=== PATIENT | female | born 1970 | race Caucasian/White ===

== ENCOUNTER → 2016-06-10 | Outpatient (CLI) | payer MEDICAID ==
[2016-06-10 12:57] LABS: Basophils % (A) 1 %; CH 32.1; CHCM 34.3; Eosinophils # (A) 0.1 k/uL (0-0.7); Eosinophils % (A) 2 %; HGB 13.6 gm/dL (11.4-16.0); Luc # (Auto) 0.11; Luc % (Auto) 3; Lymphocytes # (A) 1.5 k/uL (1.0-4.8); Lymphocytes % (A) 39 %; MCH 31.9 pg (25.0-35.0); Monocytes # (A) 0.2 k/uL (0-1.0); Monocytes % (A) 6 %; Neutrophils # (A) 1.8 k/uL (1.3-7.7); Neutrophils % (A) 49 %; RBC 4.26 m/uL (3.80-5.40); RDW 12.5 % (11.5-15.5); WBC 3.8 k/uL (3.8-10.6); WBC (Perox) 3.92
[2016-06-10 12:59] LABS: ALT 28 U/L (9-52); AST 19 U/L (14-36); Alkaline Phosphatase 38 U/L (38-126); Anion Gap 10 mmol/L; Blood Urea Nitrogen 12 mg/dL (7-17); Calcium 9.4 mg/dL (8.4-10.2); Carbon Dioxide 26 mmol/L (22-30); Chloride 105 mmol/L (98-107); Cholesterol 162 mg/dL (<200); Glucose 91 mg/dL (74-99); LDH 280 U/L (313-618); Non-African American GFR(MDRD) >60 (>60 ml/min/1.73 sqM); Phosphorous 3.6 mg/dL (2.5-4.5); Sodium 141 mmol/L (137-145); Total Bilirubin 0.6 mg/dL (0.2-1.3); Total Protein 6.8 g/dL (6.3-8.2); Uric Acid 2.7 mg/dL (3.7-7.4)
[2016-06-10 19:39] LABS: DHEA Sulfate 68.8 ug/dL (26.0-430.0)
== END | disposition home or self-care (01) ==
LOC: LABWHC1 11:59
PROVIDERS: ATTEND Family Medicine
DX: R53.83 Other fatigue (principal); E06.3 Autoimmune thyroiditis; E34.9 Endocrine disorder, unspecified; E03.9 Hypothyroidism, unspecified; E83.10 Disorder of iron metabolism, unspecified; R73.09 Other abnormal glucose; E88.9 Metabolic disorder, unspecified; E83.9 Disorder of mineral metabolism, unspecified; E61.9 Deficiency of nutrient element, unspecified; E55.9 Vitamin D deficiency, unspecified; E56.9 Vitamin deficiency, unspecified
CPT/HCPCS: 36415; 80053; 82306; 82465; 82627; 83615; 83735; 84100; 84436; 84443; 84480; 84482; 84550; 85025; 86141; 86376; 86800

== ENCOUNTER → 2016-07-02 | Outpatient (CLI) | payer MEDICAID | END | disposition home or self-care (01) | LOC: LABWHC1 16:06 | PROVIDERS: ATTEND Family Medicine | DX: E88.9 Metabolic disorder, unspecified (principal); E58 Dietary calcium deficiency; E59 Dietary selenium deficiency; E60 Dietary zinc deficiency; E61.1 Iron deficiency; E61.6 Vanadium deficiency; E56.9 Vitamin deficiency, unspecified; E55.9 Vitamin D deficiency, unspecified; R53.83 Other fatigue; E06.3 Autoimmune thyroiditis; E34.9 Endocrine disorder, unspecified; E03.9 Hypothyroidism, unspecified; R73.09 Other abnormal glucose | CPT/HCPCS: 36415; 82728; 83540; 83550 ==

== ENCOUNTER → 2017-06-21 | Outpatient (CLI) | payer MEDICAID ==
--- NOTE | 2017-06-22 11:59 | ECHOF ---
Referral Reason:I35.0 CAROTID STENOSIS MEASUREMENTS -------- HEIGHT: 157.5 cm WEIGHT: 50.8 kg BP: 109/72 RVIDd: 2.7 cm (< 3.3) IVSd: 1.0 cm (0.6 - 1.1) LVIDd: 4.1 cm (3.9 - 5.3) LVPWd: 1.0 cm (0.6 - 1.1) IVSs: 1.2 cm LVIDs: 2.5 cm LVPWs: 1.2 cm LAESV Index (A-L): 15.20 ml/m Ao Diam: 2.5 cm (2.0 - 3.7) AV Cusp: 1.7 cm (1.5 - 2.6) LA Diam: 2.0 cm (2.7 - 3.8) MV EXCURSION: 12.690 mm (> 18.000) MV EF SLOPE: 109 mm/s (70 - 150) EPSS: 0.5 cm MV E Rudi: 0.85 m/s MV DecT: 207 ms MV A Rudi: 0.72 m/s MV E/A Ratio: 1.17 AV maxP.43 mmHg AV meanP.65 mmHg AR PHT: 678 ms RAP: 10.00 mmHg RVSP: 22.59 mmHg FINDINGS -------- Sinus rhythm. This was a technically adequate study. The left ventricular size is normal. Left ventricular wall thickness is normal. Overall left vent ricular systolic function is normal with, an EF between 55 - 60 %. The right ventricle is normal in size and function. Normal LA size by volume 22+/-6 ml/m2. The right atrium is normal in size. There is mild aortic regurgitation. There is no evidence of aortic stenosis. Peak/mean gradient a cross the Aortic Valve is 15.43mmHg / 10.65mmHg. Aortic valve is functionally bicuspid and is mildl y thickened. The mitral valve leaflets are mildly thickened. There is trace to mild mitral regurgitation. Trace tricuspid regurgitation present. Right ventricular systolic pressure is normal at < 35 mmHg. There is no evidence of pulmonary hypertension. The pulmonic valve was not well visualized. The aortic root is mildy dilated up to 3.7 cm. The IVC is dilated with normal collapse. There is no pericardial effusion. CONCLUSIONS -------- 1. Sinus rhythm. 2. This was a technically adequate study. 3. The left ventricular size is normal. 4. Left ventricular wall thickness is normal. 5. Overall left ventricular systolic function is normal with, an EF between 55 - 60 %. 6. Normal LA size by volume 22+/-6 ml/m2. 7. There is mild aortic regurgitation. 8. Peak/mean gradient across the Aortic Valve is 15.43mmHg / 10.65mmHg. 9. Aortic valve is functionally bicuspid and is mildly thickened. 10. The mitral valve leaflets are mildly thickened. 11. There is trace to mild mitral regurgitation. 12. Trace tricuspid regurgitation present. 13. Right ventricular systolic pressure is normal at < 35 mmHg. 14. There is no evidence of pulmonary hypertension. 15. The pulmonic valve was not well visualized. 16. The aortic root is mildy dilated up to 3.7 cm. 17. The IVC is dilated with normal collapse. 18. There is no pericardial effusion. REFINING EQUIPMENT OPERATOR: Darryl Fulton RDCS
== END | disposition home or self-care (01) ==
LOC: RADECHMAIN 16:25
PROVIDERS: ATTEND Internal Medicine Interventional Cardiology
DX: I08.0 Rheumatic disorders of both mitral and aortic valves (principal)
CPT/HCPCS: 93306

== ENCOUNTER → 2017-07-08 | Outpatient (CLI) | payer MEDICAID ==
[2017-07-08 17:14] LABS: Basophils % (A) 1 %; Eosinophils # (A) 0.1 k/uL (0-0.7); Eosinophils % (A) 2 %; HCT 39.9 % (34.0-46.0); HGB 13.2 gm/dL (11.4-16.0); Lymphocytes # (A) 1.3 k/uL (1.0-4.8); Lymphocytes % (A) 26 %; MCH 30.8 pg (25.0-35.0); MCHC 33.1 g/dL (31.0-37.0); MCV 93.2 fL (80.0-100.0); Mean Platelet Volume 6.9; Monocytes # (A) 0.3 k/uL (0-1.0); Monocytes % (A) 7 %; Neutrophils # (A) 3.2 k/uL (1.3-7.7); Neutrophils % (A) 63 %; Platelet Count 226 k/uL (150-450); RBC 4.28 m/uL (3.80-5.40); RDW 12.9 % (11.5-15.5)
[2017-07-08 17:33] LABS: ALT 33 U/L (9-52); AST 24 U/L (14-36); Albumin 4.5 g/dL (3.5-5.0); Alkaline Phosphatase 38 U/L (38-126); Anion Gap 13 mmol/L; Blood Urea Nitrogen 25 mg/dL (7-17); Calcium 9.2 mg/dL (8.4-10.2); Carbon Dioxide 24 mmol/L (22-30); Chloride 103 mmol/L (98-107); Cholesterol 172 mg/dL (<200); Glucose 89 mg/dL (74-99); LDH 312 U/L (313-618); Phosphorus 4.6 mg/dL (2.5-4.5); Potassium 4.3 mmol/L (3.5-5.1); Sodium 140 mmol/L (137-145); Total Bilirubin 0.2 mg/dL (0.2-1.3); Total Protein 6.7 g/dL (6.3-8.2); Uric Acid 4.1 mg/dL (3.7-7.4)
[2017-07-08 21:35] LABS: C Reactive Protein <5.0 mg/L (<10.0)
[2017-07-09 00:43] LABS: Vitamin D 25 Hydroxy 36.4 ng/mL (30.0-100.0)
[2017-07-09 00:45] LABS: Thyroid Peroxidase Antibodies 770.3 U/mL (0.0-60.0)
[2017-07-09 00:47] LABS: Hemoglobin A1C 4.9 % (4.0-6.0)
[2017-07-09 00:53] LABS: Iron Saturation 16.71 (12.00-45.00)
[2017-07-09 01:02] LABS: DHEA Sulfate 50.9 ug/dL (26.0-430.0)
[2017-07-09 01:18] LABS: Folate, Serum 14.6 ng/mL
[2017-07-09 01:35] LABS: C Reactive Protein, High Sens 0.29 mg/L (0.000-3.000)
[2017-07-11 10:49] LABS: T4, Total 3.9 ug/dL (4.5 - 10.9)
== END | disposition home or self-care (01) ==
LOC: LABWHC1 16:27
PROVIDERS: ATTEND Family Medicine
DX: D68.8 Other specified coagulation defects (principal); R53.83 Other fatigue; E06.3 Autoimmune thyroiditis; E34.9 Endocrine disorder, unspecified; E03.9 Hypothyroidism, unspecified; D50.9 Iron deficiency anemia, unspecified; R73.09 Other abnormal glucose; E88.9 Metabolic disorder, unspecified; E58 Dietary calcium deficiency; E59 Dietary selenium deficiency; E60 Dietary zinc deficiency; E61.6 Vanadium deficiency; E56.9 Vitamin deficiency, unspecified; E55.9 Vitamin D deficiency, unspecified
CPT/HCPCS: 36415; 80053; 81241; 82306; 82465; 82607; 82627; 82728; 82746; 83036; 83540; 83550; 83615; 83735; 83789; 84100; 84436; 84443; 84480; 84482; 84550; 85025; 86140; 86141; 86376; 86800

== ENCOUNTER → 2017-08-18 | Outpatient (CLI) | payer MEDICAID ==
--- NOTE | 2017-08-18 21:16 | MR ---
EXAMINATION TYPE: MR lumbar spine wo con DATE OF EXAM: 08/18/2017 COMPARISON: NONE HISTORY: Bilateral pars fracture L4, low back pain, and chronic pain due to trauma all per order. Timothy k pain for over one year going into left buttocks thigh and calf. TECHNIQUE: Multiplanar, multisequence imaging of the lumbar spine is performed without IV contrast. FINDINGS: Sagittal images of the lumbar spine show vertebral body heights and alignment to appear sat isfactory. There is mild disc desiccation and disc space narrowing L3-L4 level otherwise the interver tebral discs demonstrate normal heights and hydration. No suspicious posterior disc herniations are s een on sagittal images. The conus medullaris is normal in position and signal ending superior L1 lev el. The bone marrow signal intensity is within normal limits. No significant spurring is seen. Axial images show the T12-L1, L1-L2, and L2-L3 levels to appear within normal limits. Axial images at L3-L4 level show mild facet degenerative changes bilaterally. There is mild broad dis c bulge seen but spinal canal is preserved and bilateral neural foramina are patent. Axial images at L4-L5 level show mild facet degenerative changes bilaterally. There is mild broad dis c bulge seen but spinal canal is preserved bilateral neural foramina are patent. Possible pars defect s L4 level are not well identified on MRI can be better seen on plain films and/or CT. Axial images at the L5-S1 level show mild facet degenerative changes bilaterally. There is broad-base d posterior disc protrusion seen with spinal canal is preserved. Bilateral neural foramina are patent . Debris-filled stomach is felt present suggesting recent meal ingestion. No suspicious retroperitoneal findings are seen. IMPRESSION: Some multilevel degenerative changes L3-L4 through the L5-S1 levels as detailed above. No suspicious finding is seen to account for patient's left-sided radiculopathy type symptoms however.
== END ==
LOC: RADMRIMAIN 19:36
PROVIDERS: ATTEND Physical Medicine & Rehabilitation
DX: M47.817 Spondylosis without myelopathy or radiculopathy, lumbosacral region (principal); G89.21 Chronic pain due to trauma
CPT/HCPCS: 72148

== ENCOUNTER → 2017-12-09 | Outpatient (CLI) | payer MEDICAID ==
[2017-12-09 15:39] LABS: Basophils # (A) 0.1 k/uL (0-0.2); Basophils % (A) 1 %; Eosinophils # (A) 0.1 k/uL (0-0.7); Eosinophils % (A) 2 %; HCT 39.4 % (34.0-46.0); HGB 13.6 gm/dL (11.4-16.0); Lymphocytes # (A) 1.4 k/uL (1.0-4.8); Lymphocytes % (A) 36 %; MCH 32.2 pg (25.0-35.0); MCHC 34.4 g/dL (31.0-37.0); MCV 93.7 fL (80.0-100.0); Mean Platelet Volume 6.6; Monocytes # (A) 0.3 k/uL (0-1.0); Monocytes % (A) 7 %; Neutrophils # (A) 1.9 k/uL (1.3-7.7); Neutrophils % (A) 51 %; Platelet Count 238 k/uL (150-450); RBC 4.21 m/uL (3.80-5.40); RDW 12.4 % (11.5-15.5); WBC 3.8 k/uL (3.8-10.6)
[2017-12-09 15:54] LABS: Albumin 4.4 g/dL (3.5-5.0); Calcium 9.6 mg/dL (8.4-10.2); Phosphorus 3.5 mg/dL (2.5-4.5); Total Bilirubin 0.4 mg/dL (0.2-1.3); Total Protein 6.7 g/dL (6.3-8.2); Uric Acid 3.4 mg/dL (3.7-7.4)
[2017-12-09 19:52] LABS: Vitamin D 25 Hydroxy 45.6 ng/mL (30.0-100.0)
[2017-12-09 19:55] LABS: Iron Saturation 17.39 (12.00-45.00)
[2017-12-09 20:02] LABS: DHEA Sulfate 73.3 ug/dL (26.0-430.0)
[2017-12-09 20:12] LABS: Folate, Serum 20.1 ng/mL
[2017-12-09 20:43] LABS: Thyroid Peroxidase Antibodies 982.6 U/mL (0.0-60.0)
[2017-12-10 04:24] LABS: Hemoglobin A1C 5.1 % (4.0-6.0)
[2017-12-12 19:25] LABS: T4, Total 4.5 ug/dL (4.5 - 10.9)
== END | disposition home or self-care (01) ==
LOC: LABWHC1 14:33
PROVIDERS: ATTEND Family Medicine
DX: E06.3 Autoimmune thyroiditis (principal); R53.83 Other fatigue; E34.9 Endocrine disorder, unspecified; E03.9 Hypothyroidism, unspecified; R73.09 Other abnormal glucose; N95.1 Menopausal and female climacteric states; E88.9 Metabolic disorder, unspecified; E58 Dietary calcium deficiency; E59 Dietary selenium deficiency; E60 Dietary zinc deficiency; E56.9 Vitamin deficiency, unspecified; E55.9 Vitamin D deficiency, unspecified
CPT/HCPCS: 36415; 80053; 82306; 82465; 82607; 82627; 82728; 82746; 83036; 83540; 83550; 83615; 83735; 84100; 84140; 84403; 84436; 84443; 84480; 84482; 84550; 85025; 86141; 86376; 86800

== ENCOUNTER 2017-12-13 12:27 | Day surgery (SDC) | payer MEDICAID ==
[2017-12-09 11:07] VITALS: BMI 20.8
[2017-12-13 13:01] VITALS: RESP 16; TEMP 98.4
[2017-12-13] MEDS ORDERED: LACTATED RINGERS 1,000 ML IV ONE (13:01)
[2017-12-13] MEDS ORDERED: PROPOFOL 10 MG/ML 20 ML VIAL IV ONE (14:08)
--- NOTE | 2017-12-13 14:41 | P.PCN ---
Date of Procedure: 12/13/17 Procedure(s) Performed: procedure: Total colonoscopy. Preoperative diagnosis: Change in bowel habits. Postoperative diagnosis: Exam within normal limits. Preparation: HalfLytely prep. Sedation: Was provided by anesthesia. Brief clinical history: The patient is a 47-year-old female was had issues with constipation since her 20s. She feels that her symptoms are getting worse as she is getting older. She has occasional bleeding from hemorrhoids. Typically , has 1 bowel movement every 2-3 days despite SUPPLEMENTS and stool softeners and exercise. This evaluation is to rule out neoplasia or other pathology. Procedure: With the patient on her left lateral decubitus position and after informed consent and adequate sedation, the perianal area was inspected and it did not show any fissures or fistulas. There were no masses felt on digital rectal examination. The Olympus CFQ 160L video colonoscope was then inserted in the rectum in the usual fashion and advanced to the cecum. The mucosa appeared healthy. No polyps or tumors were seen or any obvious diverticular disease or other pathology. I retroflexed the endoscope in the rectum before the endoscope was withdrawn. Low-grade internal hemorrhoids were noted with no evidence of bleeding. The patient tolerated the procedure well. Plan: The patient was reassured. Discussed dietary measures and local care for hemorrhoids. She will follow-up with you as planned and I recommended repeat exam in 10 years.
[2017-12-13 15:04] VITALS: BP 102/68; PULSE 39
== END 2017-12-13 15:14 | disposition home or self-care (01) ==
LOC: ORWHC2ENDO 12:27
DX: K59.00 Constipation, unspecified (principal); K64.8 Other hemorrhoids; E07.9 Disorder of thyroid, unspecified; Q23.1 Congenital insufficiency of aortic valve; I71.2 Thoracic aortic aneurysm, without rupture; Z79.890 Hormone replacement therapy; Z91.040 Latex allergy status
CPT/HCPCS: 81025; 45378; J2704

== ENCOUNTER → 2018-06-29 | Outpatient (CLI) | payer MEDICAID ==
[2018-06-29 16:55] LABS: Basophils % (A) 1 %; Eosinophils # (A) 0.1 k/uL (0-0.7); Eosinophils % (A) 2 %; Lymphocytes # (A) 1.5 k/uL (1.0-4.8); Lymphocytes % (A) 31 %; MCH 30.8 pg (25.0-35.0); MCHC 32.6 g/dL (31.0-37.0); MCV 94.7 fL (80.0-100.0); Monocytes # (A) 0.3 k/uL (0-1.0); Monocytes % (A) 6 %; Neutrophils # (A) 2.9 k/uL (1.3-7.7); Neutrophils % (A) 59 %; Platelet Count 245 k/uL (150-450); RBC 4.22 m/uL (3.80-5.40); RDW 13.2 % (11.5-15.5)
[2018-06-30 00:59] LABS: Albumin 4.6 g/dL (3.80-4.90); Albumin/Globulin Ratio 2.71 (1.60-3.17); Anion Gap 8.8 mmol/L (4.00-12.00); Calcium 9.4 mg/dL (8.7-10.3); Carbon Dioxide 24.2 mmol/L (21.6-31.8); Globulin 1.7 g/dL (1.6-3.3); Phosphorus 3.6 mg/dL (2.4-5.1); Potassium 4.2 mmol/L (3.5-5.5); Total Protein 6.3 g/dL (6.2-8.2); Uric Acid 2.7 mg/dL (2.9-7.7)
[2018-06-30 01:56] LABS: T4, Free (Free Thyroxine) 0.8 ng/dL (0.80-1.80)
[2018-06-30 02:01] LABS: Hemoglobin A1C 5.3 % (4.0-6.0)
[2018-06-30 02:30] LABS: DHEA Sulfate 49.1 ug/dL (26.0-430.0)
[2018-06-30 03:09] LABS: C Reactive Protein, High Sens 0.48 mg/L (0.000-3.000); Iron Saturation 40.34 (12.00-45.00); Thyroid Peroxidase Antibodies 985.6 U/mL (0.0-60.0)
== END | disposition home or self-care (01) ==
LOC: LABWHC1 16:25
PROVIDERS: ATTEND Family Medicine
DX: E06.3 Autoimmune thyroiditis (principal); R10.9 Unspecified abdominal pain; R53.83 Other fatigue; E34.9 Endocrine disorder, unspecified; E03.9 Hypothyroidism, unspecified; B99.9 Unspecified infectious disease; D50.9 Iron deficiency anemia, unspecified; E88.9 Metabolic disorder, unspecified; E58 Dietary calcium deficiency; E59 Dietary selenium deficiency; E60 Dietary zinc deficiency; E56.9 Vitamin deficiency, unspecified; E55.9 Vitamin D deficiency, unspecified
CPT/HCPCS: 36415; 80053; 82306; 82465; 82627; 82728; 83036; 83540; 83550; 83615; 83735; 84100; 84140; 84403; 84439; 84443; 84481; 84550; 85025; 86141; 86376; 86800

== ENCOUNTER → 2018-06-29 | Outpatient (CLI) | payer MEDICAID ==
--- NOTE | 2018-06-30 10:56 | ECHOF ---
Referral Reason:Q23.1 Bicuspid atrial valve MEASUREMENTS -------- HEIGHT: 157.5 cm WEIGHT: 50.8 kg BP: RVIDd: 2.7 cm (< 3.3) IVSd: 1.2 cm (0.6 - 1.1) LVIDd: 3.2 cm (3.9 - 5.3) LVPWd: 1.3 cm (0.6 - 1.1) IVSs: 1.4 cm LVIDs: 1.9 cm LVPWs: 1.7 cm LAESV Index (A-L): 17.49 ml/m Ao Diam: 2.7 cm (2.0 - 3.7) AV Cusp: 1.5 cm (1.5 - 2.6) LA Diam: 2.2 cm (2.7 - 3.8) EPSS: 0.4 cm AV maxP.50 mmHg AV meanP.76 mmHg AR PHT: 991 ms RAP: 5.00 mmHg RVSP: 16.64 mmHg MV EF SLOPE: 118.89 mm/s (70 - 150) MV EXCURSION: 1.59 cm (> 18.000) FINDINGS -------- Sinus rhythm. This was a technically good study. The left ventricular size is normal. There is mild concentric left ventricular hypertrophy. Overa ll left ventricular systolic function is normal with, an EF between 55 - 60 %. The right ventricle is normal in size. Normal LA size by volume 22+/-6 ml/m2. The right atrial size is normal. Interatrial and interventricular septum intact. The aortic valve is bicuspid. Peak/mean gradient across the Aortic Valve is 17.50mmHg / 10.76mmHg. Mild mitral regurgitation is present. Mild tricuspid regurgitation present. The right ventricular systolic pressure, as measured by Doppl er, is 16.64mmHg. There is no pulmonic regurgitation present. The aortic root size is normal. Normal inferior vena cava with normal inspiratory collapse consistent with estimated right atrial pre ssure of 5 mmHg. There is no pericardial effusion. CONCLUSIONS -------- 1. Sinus rhythm. 2. This was a technically good study. 3. The left ventricular size is normal. 4. There is mild concentric left ventricular hypertrophy. 5. Overall left ventricular systolic function is normal with, an EF between 55 - 60 %. 6. The right ventricle is normal in size. 7. Normal LA size by volume 22+/-6 ml/m2. 8. The right atrial size is normal. 9. Interatrial and interventricular septum intact. 10. The aortic valve is bicuspid. 11. Peak/mean gradient across the Aortic Valve is 17.50mmHg / 10.76mmHg. 12. Mild mitral regurgitation is present. 13. Mild tricuspid regurgitation present. 14. The right ventricular systolic pressure, as measured by Doppler, is 16.64mmHg. 15. There is no pulmonic regurgitation present. 16. The aortic root size is normal. 17. Normal inferior vena cava with normal inspiratory collapse consistent with estimated right atrial pressure of 5 mmHg. 18. There is no pericardial effusion. SUPERVISOR PIGMENT MAKING: Jessica Casillas RDCS
== END | disposition home or self-care (01) ==
LOC: RADECHMAIN 15:47
PROVIDERS: ATTEND Internal Medicine Interventional Cardiology
DX: Q23.1 Congenital insufficiency of aortic valve (principal)
CPT/HCPCS: 93306

== ENCOUNTER → 2018-12-29 | Outpatient (CLI) | payer MEDICAID ==
[2018-12-29 17:05] LABS: Basophils % (A) 1 %; Eosinophils # (A) 0.1 k/uL (0-0.7); Eosinophils % (A) 1 %; HGB 12.8 gm/dL (11.4-16.0); Lymphocytes # (A) 1.4 k/uL (1.0-4.8); Lymphocytes % (A) 25 %; MCH 32.4 pg (25.0-35.0); MCHC 34.6 g/dL (31.0-37.0); MCV 93.6 fL (80.0-100.0); Mean Platelet Volume 5.9; Monocytes # (A) 0.3 k/uL (0-1.0); Monocytes % (A) 6 %; Neutrophils # (A) 3.7 k/uL (1.3-7.7); Neutrophils % (A) 64 %; Platelet Count 283 k/uL (150-450); RBC 3.95 m/uL (3.80-5.40); RDW 12.6 % (11.5-15.5); WBC 5.7 k/uL (3.8-10.6)
[2018-12-29 23:22] LABS: ALT 21 U/L (8-44); AST 22 U/L (13-35); Carbon Dioxide 26.1 mmol/L (21.6-31.8); Chloride 107 mmol/L (96-109); Potassium 4.2 mmol/L (3.5-5.5); Sodium 138 mmol/L (135-145)
[2018-12-29 23:28] LABS: Progesterone 7.9 ng/mL
[2018-12-29 23:32] LABS: Ferritin 58.7 ng/mL (10.0-291.0); Follicle Stimulating Hormone 8.7 mIU/mL; Luteinizing Hormone 2.6 mIU/mL
[2018-12-29 23:36] LABS: % Iron Saturation 25.08 (12.00-45.00); ALT 21 U/L (8-44); AST 22 U/L (13-35); Albumin/Globulin Ratio 2.93 (1.60-3.17); Alkaline Phosphatase 44 U/L (41-126); BUN/Creat Ratio 21.11 Ratio (12.00-20.00); C Reactive Protein <0.4 mg/dL (0.0-0.8); Calcium 8.8 mg/dL (8.7-10.3); Carbon Dioxide 26.5 mmol/L (21.6-31.8); Chloride 107 mmol/L (96-109); Cholesterol 163 mg/dL (0-200); Globulin 1.5 g/dL (1.6-3.3); Glucose 93 mg/dL (70-110); Iron 77 ug/dL (50-170); LDH 130 U/L (120-246); Potassium 4.2 mmol/L (3.5-5.5); Sodium 138 mmol/L (135-145); Total Bilirubin 0.6 mg/dL (0.3-1.2); Total Iron Binding Capacity 307 ug/dL (228-460); Total Protein 5.9 g/dL (6.2-8.2)
[2018-12-29 23:44] LABS: Folate, Serum >24.0 ng/mL
[2018-12-29 23:44] LABS: Thyroid Peroxidase Antibodies 1244.7 U/mL (0.0-60.0)
[2018-12-30 00:09] LABS: Testosterone <7.00 ng/dL (9.01-47.94)
[2019-01-01 15:10] LABS: Estrogens Total 193 pg/mL
== END | disposition home or self-care (01) ==
LOC: LABWHC1 15:57
PROVIDERS: ATTEND Family Medicine
DX: D68.8 Other specified coagulation defects (principal); R53.83 Other fatigue; E06.3 Autoimmune thyroiditis; E34.9 Endocrine disorder, unspecified; E78.00 Pure hypercholesterolemia, unspecified; R73.09 Other abnormal glucose; E03.9 Hypothyroidism, unspecified; D50.9 Iron deficiency anemia, unspecified; N95.1 Menopausal and female climacteric states; E88.9 Metabolic disorder, unspecified; E58 Dietary calcium deficiency; E59 Dietary selenium deficiency; E61.6 Vanadium deficiency; E55.9 Vitamin D deficiency, unspecified
CPT/HCPCS: 36415; 80051; 80053; 82306; 82465; 82607; 82627; 82672; 82728; 82746; 83001; 83002; 83036; 83540; 83550; 83615; 83735; 84144; 84403; 84432; 84439; 84443; 84450; 84460; 84481; 84482; 85025; 85384; 86140; 86376

== ENCOUNTER → 2019-01-09 | Outpatient (CLI) | payer MEDICAID ==
--- NOTE | 2019-01-10 07:34 | US ---
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 GLAND SIZE: Right Lobe: 3.4 x 1.1 x 1.0 cm Overall Parenchyma: heterogenous Left Lobe: 2.8 x 1.0 x 1.1 cm Overall Parenchyma: heterogeneous Isthmus Thickness: 0.3 cm NODULES RIGHT: # of nodules measured on right: 0 LEFT: # of nodules measured on left: 0 ISTHMUS: # of nodules measured in the isthmus: 0 Bilateral neck scanned, no evidence of lymphadenopathy. Diffuse hypervascularity throughout the thyroid gland and heterogeneity. 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 No new measurable discrete nodule.
== END | disposition home or self-care (01) ==
LOC: RADUSWWP 16:22
PROVIDERS: ATTEND Family Medicine
DX: E04.9 Nontoxic goiter, unspecified (principal); E06.3 Autoimmune thyroiditis
CPT/HCPCS: 76536

== ENCOUNTER → 2019-02-07 | Outpatient (CLI) | payer MEDICAID ==
[2019-02-07 16:34] LABS: Prolactin 12.5 ng/mL (2.8-29.2)
== END | disposition home or self-care (01) ==
LOC: LABWHC1 09:30
PROVIDERS: ATTEND Internal Medicine Endocrinology, Diabetes & Metabolism
DX: R53.83 Other fatigue (principal)
CPT/HCPCS: 36415; 82024; 82533; 84146

== ENCOUNTER → 2019-03-20 | Outpatient (CLI) | payer BC | END | disposition home or self-care (01) | LOC: LABWHC1 17:14 | PROVIDERS: ATTEND Internal Medicine Endocrinology, Diabetes & Metabolism | DX: E03.8 Other specified hypothyroidism (principal) | CPT/HCPCS: 36415; 84443 ==

== ENCOUNTER → 2019-05-04 | Outpatient (CLI) | payer BC ==
[2019-05-04 23:34] LABS: T4, Free (Free Thyroxine) 1.2 ng/dL (0.80-1.80)
== END | disposition home or self-care (01) ==
LOC: LABWHC1 16:21
PROVIDERS: ATTEND Internal Medicine Endocrinology, Diabetes & Metabolism
DX: E03.8 Other specified hypothyroidism (principal)
CPT/HCPCS: 36415; 84439; 84443; 86376

== ENCOUNTER → 2019-08-16 | Outpatient (CLI) | payer BC ==
[2019-08-16 18:55] LABS: T4, Free (Free Thyroxine) 1.1 ng/dL (0.80-1.80); Thyroid Peroxidase Antibodies 514.9 U/mL (0.0-60.0)
== END | disposition home or self-care (01) ==
LOC: LABWHC1 12:22
PROVIDERS: ATTEND Internal Medicine Endocrinology, Diabetes & Metabolism
DX: E03.8 Other specified hypothyroidism (principal); R53.83 Other fatigue
CPT/HCPCS: 36415; 82306; 82607; 82626; 82728; 84432; 84439; 84443; 84481; 86376